=== PATIENT | female | born 1960 | race African-American/Black ===

== ENCOUNTER 2024-12-09 23:52 | Inpatient (IN) | payer OTHER ==
[~2024-12-09] VITALS: Ht 172.7 cm; Wt 84.9 kg
[2024-12-10] VITALS (7 sets, daily range): BP systolic 104–120; BP diastolic 61–89; PULSE 71–118; RESP 15–20; TEMP 36.3–36.6; O2SAT 96–100
[2024-12-10 00:27] LABS: BASOPHILS % 0.8 % (0.0-2.0); EOSINOPHILS % 2.3 % (0.0-5.0); HEMATOCRIT. 40.6 % (36.0-48.0); HEMOGLOBIN. 13.2 g/dL (12.0-16.0); LYMPHOCYTES % 42.9 % (20.0-50.0); MEAN PLATELET VOLUME 9.4 fl (7.4-10.4); MONOCYTES % 4.9 % (2.0-8.0); NEUTROPHILS % 49.1 % (40.0-76.0); PLATELET 171 x1000/uL (130-400); RED BLOOD CELL COUNT 4.54 mill/uL (4.2-5.4); RED CELL DISTRIBUTION WIDTH 14.1 % (11.6-14.6)
[2024-12-10 00:41] LABS: INR 1.0
[2024-12-10 00:42] LABS: CREATININE 0.9 mg/dL (0.6-1.0); ETHANOL BLOOD < 10 mg/dL (<10); UREA NITROGEN BLOOD 20 mg/dL (9-23)
[2024-12-10 00:43] LABS: TROPONIN I HIGH SENSITIVITY 10 ng/L (3.0-34)
[2024-12-10 00:55] LABS: *AMPHETAMINES SCREEN URINE NEGATIVE (NEGATIVE); *BARBITURATES SCREEN URINE NEGATIVE (NEGATIVE); *BENZODIAZEPINES SCREEN URINE NEGATIVE (NEGATIVE); *COCAINE SCREEN URINE NEGATIVE (NEGATIVE); CANNABINOID URINE SCREEN NEGATIVE (NEGATIVE); ECSTASY MDMA SCREEN URINE NEGATIVE (NEGATIVE); METHADONE URINE SCREEN NEGATIVE (NEGATIVE); OPIATES URINE SCREEN NEGATIVE (NEGATIVE); PHENCYCLIDINE URINE SCREEN NEGATIVE (NEGATIVE)
[2024-12-10 05:24] LABS: TROPONIN I HIGH SENSITIVITY 40 ng/L (3.0-34)
[2024-12-10] MEDS ORDERED: ASPIRIN 325MG EC TABLET PO ONE (05:30)
[2024-12-10] MEDS: ENOXAPARIN 80MG/0.8ML SYR SUBCUT NR (06:14)
[2024-12-10] MEDS ORDERED: CLONIDINE 0.1MG TABLET PO PRN (09:30)
[2024-12-10] MEDS ORDERED: MORPHINE SULFATE 2 MG/ML INJ (NOT FOR IM USE) IV PRN (09:30)
[2024-12-10] MEDS ORDERED: IPRATROPIUM/ALBUTEROL 0.5-3(2.5)MG/3ML NEB NEB PRN (09:30)
[2024-12-10] MEDS ORDERED: MAGNESIUM/ALUMINUM HYDROXIDE/SIMETHICONE 30ML UDC PO PRN (09:30)
[2024-12-10] MEDS ORDERED: ONDANSETRON HCL 4MG/2ML INJ IV PRN (09:30)
[2024-12-10] MEDS ORDERED: HYDROCODONE/ACETAMINOPHEN 5/325MG TABLET PO PRN (09:30)
[2024-12-10] MEDS ORDERED: ACETAMINOPHEN 325MG TABLET PO PRN (09:30)
[2024-12-10] MEDS ORDERED: NALOXONE HCL 0.4MG/ML VIAL IV PRN (09:45)
[2024-12-10] MEDS: METOPROLOL TARTRATE 25MG TABLET PO SCH ×2 (15:35→20:43)
[2024-12-10] MEDS: ENOXAPARIN 80MG/0.8ML SYR SUBCUT SCH (17:48)
[2024-12-10] MEDS ORDERED: METOPROLOL TARTRATE 25MG TABLET PO SCH (21:00)
[2024-12-11] VITALS: BP 121/72; PULSE 76; RESP 18; TEMP 36.1; O2SAT 96
[2024-12-11 00:26] LABS: TROPONIN I HIGH SENSITIVITY 11 ng/L (3.0-34)
[2024-12-11 04:00] VITALS: BP 110/82; PULSE 115; RESP 18; TEMP 36.3; O2SAT 97
[2024-12-11 07:38] LABS: BASOPHILS % 0.8 % (0.0-2.0); EOSINOPHILS % 3.5 % (0.0-5.0); HEMATOCRIT. 47.7 % (36.0-48.0); HEMOGLOBIN. 15.4 g/dL (12.0-16.0); LYMPHOCYTES % 60.8 % (20.0-50.0); MEAN PLATELET VOLUME 9.8 fl (7.4-10.4); MONOCYTES % 5.4 % (2.0-8.0); NEUTROPHILS % 29.5 % (40.0-76.0); PLATELET 189 x1000/uL (130-400); RED BLOOD CELL COUNT 5.32 mill/uL (4.2-5.4); RED CELL DISTRIBUTION WIDTH 14.4 % (11.6-14.6)
[2024-12-11 07:56] LABS: TROPONIN I HIGH SENSITIVITY 9 ng/L (3.0-34)
[2024-12-11 08:00] VITALS: BP 101/68; PULSE 80; RESP 18; TEMP 35.8; O2SAT 98
[2024-12-11 08:01] LABS: CREATININE 0.8 mg/dL (0.6-1.0); TRIGLYCERIDE 129 mg/dL (0-150); UREA NITROGEN BLOOD 16 mg/dL (9-23)
[2024-12-11 08:02] LABS: LDL CHOLESTEROL 108 mg/dL (5-100)
[2024-12-11] MEDS: PANTOPRAZOLE SODIUM 40 MG/VIAL IV SCH (09:16)
[2024-12-11] MEDS: MAGNESIUM 2 G PREMIX 50 ML IV SCH (11:06)
[2024-12-11 12:00] VITALS: BP 90/59; PULSE 74; RESP 18; TEMP 36.1; O2SAT 99
[2024-12-11] MEDS: MAGNESIUM OXIDE 400MG TABLET PO SCH (12:26)
[2024-12-11] MEDS ORDERED: METO25TA6 PO (14:23)
[2024-12-11] MEDS ORDERED: APIX5TAB MT (14:23)
[2024-12-11] MEDS ORDERED: MAGN400T26 MT (14:34)
[2024-12-12] MEDS ORDERED: ENOXAPARIN 80MG/0.8ML SYR SUBCUT SCH (09:00)
== END 2024-12-11 15:35 | disposition home or self-care (01) | DRG 309 ==
LOC: ER 12-10 00:04 → 6WST 12-10 05:27 → EDBEDREQTM 12-10 05:29 → EDBEDREQDT 12-10 05:29 → EDBEDREQ 12-10 05:29 → ENRESERV 12-10 05:44
PROVIDERS: ADMIT Internal Medicine; ATTEND Internal Medicine
DX: R00.2 Palpitations (principal); I48.92 Unspecified atrial flutter; I48.91 Unspecified atrial fibrillation; E83.42 Hypomagnesemia; I10 Essential (primary) hypertension; R00.0 Tachycardia, unspecified; R53.1 Weakness; R53.81 Other malaise; R53.83 Other fatigue
CPT/HCPCS: 36415; 71045; 80048; 80061; 80305; 80320; 83735; 83880; 84484; 85025; 93005; 93306; 93970; 99285; J1650; J2470; J3475; G0480